=== PATIENT | female | born 1995 | race Caucasian/White ===

== ENCOUNTER 2021-01-24 08:10 | Emergency (ER) | payer OTHER ==
[~2021-01-24] VITALS: Ht 152.4 cm; Wt 95.7 kg
[~2021-01-24 08:10] MED LIST: CEFTIN250 MG PO; CIPRO500 MG PO; KETO10TA2 PO
== END 2021-01-24 12:45 | disposition home or self-care (01) ==
LOC: ER 08:10
DX: N20.1 Calculus of ureter (principal); R10.32 Left lower quadrant pain

== ENCOUNTER 2024-11-05 17:17 | Inpatient (IN) | payer OTHER ==
[~2024-11-05] VITALS: Ht 152.4 cm; Wt 68.0 kg
[2024-11-05] MEDS ORDERED: ONDANSETRON HCL 2 MG/ML VIAL IV ONE (20:00)
[2024-11-05] MEDS ORDERED: MORPHINE SULFATE 4 MG/ML VIAL IV ONE (20:00)
[2024-11-05] MEDS ORDERED: KETOROLAC TROMETHAMINE 60 MG VIAL IM ONE (20:00)
[2024-11-05 20:15] LABS: BASO % 0.4 % (0.1-1.2); EOS # 0.01 (0.04-0.54); EOS % 0.1 % (0.7-7.0); HEMATOCRIT 43.6 % (34.1-44.9); HEMOGLOBIN 14.9 g/dL (11.2-15.7); LYMPH # 1.17 (1.18-3.74); LYMPH % 14.8 % (19.3-53.1); MEAN CORPUSCULAR HEMOGLOBIN 29.6 pg (25.6-32.2); MONO # 0.21 (0.24-0.82); MONO % 2.7 % (4.7-12.5); NEUT # 6.44 (1.56-6.13); NEUT % 81.7 % (34.0-71.1); PLATELET COUNT 239 K/uL (163-369); RED BLOOD COUNT 5.04 M/uL (3.93-5.22); RED CELL DISTRIBUTION WIDTH 12.4 % (11.6-14.4)
[2024-11-05 20:34] LABS: PH,URINE 6.5 (5.0-8.0); URINE APPEARANCE Clear; URINE BILIRRUBIN Negative (NEGATIVE); URINE BLOOD Large; URINE COLOR Dark Yellow; URINE GLUCOSE Negative (NEGATIVE); URINE KETONE 15 (NEGATIVE); URINE LEUKOCYTE Trace; URINE NITRATE Negative; URINE PROTEIN 30 (NEGATIVE)
[2024-11-05 20:36] LABS: URINE BACTERIA 62.4 uL (0.0-1933); URINE EPITHELIAL CELLS 5.8 uL (0.0-38.8); URINE WBC 19.6 uL (0.0-23.2)
[2024-11-05 20:45] LABS: URINE CAST 0.88 uL (0.0-1.40)
[2024-11-05 20:52] LABS: ALBUMIN 4.7 gm/dL (3.4-5.0); BILIRUBIN TOTAL 0.66 mg/dL (0.3-1.2); CALCIUM 10.2 mg/dL (8.5-10.1); CREATININE SERUM 1.02 mg/dL (0.55-1.02); GFR 64.07; GLOBULINA 4.5 G/DL (2.4-3.5); POTASSIUM 4.04 mEq/L (3.5-5.1); TOTAL PROTEIN 9.2 gm/dL (6.4-8.2)
[2024-11-05] MEDS ORDERED: MORPHINE SULFATE 4 MG/ML CARTRIDGE IV ONE (22:30)
[2024-11-05] MEDS ORDERED: KETOROLAC TROMETHAMINE 30 MG VIAL IU ONE (22:30)
[2024-11-05] MEDS ORDERED: 0.9 % SODIUM CHLORIDE 1,000 ML IV SCH (23:30)
[2024-11-05] MEDS ORDERED: CEFTRIAXONE SODIUM 2,000 MG in 0.9 % SODIUM CHLORIDE 100 ML IV SCH (23:34)
[2024-11-05] MEDS ORDERED: TAMSULOSIN HCL 0.4 MG CAP PO SCH (23:34)
[2024-11-05] MEDS ORDERED: FAMOTIDINE/PF 20 MG in 0.9 % SODIUM CHLORIDE 8 ML IV PUSH SCH (23:34)
[2024-11-05] MEDS ORDERED: ACETAMINOPHEN 500 MG GEL..CAP PO PRN (23:45)
[2024-11-05] MEDS ORDERED: ONDANSETRON HCL 4 MG in 0.9 % SODIUM CHLORIDE 50 ML IV PRN (23:45)
[2024-11-06] MEDS ORDERED: KETOROLAC TROMETHAMINE 15 MG VIAL IV SCH (03:00)
[2024-11-06] MEDS ORDERED: TAMSULOSIN HCL 0.4 MG CAP PO ONE (04:32)
[2024-11-06] MEDS ORDERED: KETOROLAC TROMETHAMINE 30 MG VIAL ONE (04:32)
[2024-11-06] MEDS ORDERED: CEFTRIAXONE SODIUM 2,000 MG VIAL ONE (04:33)
[2024-11-06] MEDS ORDERED: FAMOTIDINE/PF 20 MG/2 ML VIAL ONE (04:33)
[2024-11-06 04:55] VITALS: BP 90/66
[2024-11-06 06:40] LABS: INR 1.1; PARTIAL THROMBOPLASTIN TIME 26.5 SECONDS (22.0-34.0); PROTHROMBIN TIME 11.9 SECONDS (9.0-11.5)
[2024-11-06 08:39] VITALS: BP 94/50; O2SAT 98
[2024-11-06] MEDS ORDERED: TAMSULOSIN HCL 0.4 MG CAP PO SCH (09:00)
[2024-11-06] MEDS ORDERED: KETOROLAC TROMETHAMINE 30 MG VIAL IV SCH (13:00)
[2024-11-06 17:47] VITALS: BP 102/61
[2024-11-07 02:34] VITALS: BP 91/56; O2SAT 98
[2024-11-07 08:59] VITALS: BP 96/60; O2SAT 99
[2024-11-07] MEDS ORDERED: TAMS0.4C PO (13:55)
[2024-11-07] MEDS ORDERED: LEVOFLOXACIN500 MG PO (13:56)
[2024-11-07] MEDS ORDERED: PROTONIX40 MG PO (13:56)
[2024-11-07] MEDS ORDERED: KETO10TA2 PO (13:57)
== END 2024-11-07 17:37 | disposition home or self-care (01) | DRG 694 ==
LOC: ER 17:17 → MEDJ 23:48 → SEC-K 23:48 → MEDJ 11-06 10:13
PROVIDERS: General Practice; Preventive Medicine Public Health & General Preventive Medicine; ADMIT Internal Medicine; ATTEND Internal Medicine
PROC: BW21ZZZ Computerized Tomography (CT Scan) of Abdomen and Pelvis (ICD-10-PCS; principal; 2024-11-05)
PROC: BW40ZZZ Ultrasonography of Abdomen (ICD-10-PCS; 2024-11-07)
DX: N13.2 Hydronephrosis with renal and ureteral calculous obstruction (principal)